=== PATIENT | female | born 1955 | race Caucasian/White ===

== ENCOUNTER 2017-09-06 23:53 | Inpatient (IN) | payer OTHER ==
[~2017-09-06] VITALS: Ht 175.3 cm; Wt 88.0 kg
[2017-09-07] VITALS (7 sets, daily range): BP systolic 118–141; BP diastolic 63–88; PULSE 89–112; RESP 15–22; TEMP 97.7–97.9; O2SAT 93–100
[2017-09-07] MEDS ORDERED: METF1000 PO (00:20)
[2017-09-07] MEDS ORDERED: LISI-515 PO (00:20)
[2017-09-07] MEDS ORDERED: ROSU40 PO (00:20)
[2017-09-07] MEDS ORDERED: CHOL1CAP PO (00:20)
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
[2017-09-07] MEDS ORDERED: MORPHINE SULFATE 4 MG/ML INJ IV PUSH ONE (00:30)
[2017-09-07] MEDS ORDERED: ONDANSETRON HCL 4 MG/2 ML VIAL IV PUSH ONE (00:30)
[2017-09-07 00:31] LABS: AUTOMATED NEUTROPHIL # 3.6 TH/MM3 (1.8-7.7); BASOPHIL # 0.1 TH/MM3 (0-0.2); BASOPHIL % 1.5 % (0.0-2.0); EOSINOPHIL # 0.3 TH/MM3 (0-0.4); EOSINOPHIL % 4.8 % (0.0-4.0); HEMATOCRIT 37.3 % (35.0-46.0); HEMOGLOBIN 13.1 GM/DL (11.6-15.3); LYMPH % 35.7 % (9.0-44.0); LYMPHOCYTE # 2.5 TH/MM3 (1.0-4.8); MEAN CELL VOLUME 91.2 FL (80.0-100.0); MEAN CORPUSCULAR HEMOGLOBIN 32.2 PG (27.0-34.0); MEAN CORPUSCULAR HGB CONC 35.3 % (32.0-36.0); MEAN PLATELET VOLUME 7.5 FL (7.0-11.0); MONO % 7.1 % (0.0-8.0); MONOCYTE # 0.5 TH/MM3 (0-0.9); NEUT % 50.9 % (16.0-70.0); PLATELET COUNT 201 TH/MM3 (150-450); RED BLOOD COUNT 4.09 MIL/MM3 (4.00-5.30); WHITE BLOOD COUNT 7.1 TH/MM3 (4.0-11.0)
[2017-09-07 00:50] LABS: BICARBONATE 22.1 MEQ/L (21.0-32.0); CREATININE 1.07 MG/DL (0.50-1.00); INTERNATIONAL NORMALIZED RATIO 1.1 RATIO; PROTHROMBIN TIME - PATIENT 10.9 SEC (9.8-11.6)
[2017-09-07] MEDS ORDERED: HYDROmorphone HCL PF 1 MG/ML VIAL IV PUSH ONE (01:00)
[2017-09-07] MEDS ORDERED: PROPOFOL 200 MG/20 ML AMP IV ONE ×3 (01:00→12:00)
[2017-09-07] MEDS ORDERED: HYDROmorphone HCL PF 2 MG/ML VIAL IV PUSH ONE (01:15)
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
--- NOTE | 2017-09-07 03:29 | RADRPT ---
EXAM DATE/TIME: 09/07/2017 02:14 [facility] COMPARISON: ANKLE RIGHT COMPLETE ([id number]), September 07, 2017, 0:28. INDICATIONS : Status post reduction. MEDICAL HISTORY : None. SURGICAL HISTORY : None. ENCOUNTER: Subsequent ACUITY: 1 day PAIN SCORE: 6/10 LOCATION: Right Ankle FINDINGS: Two view examination was performed of the right ankle. Image is labeled post reduction but there is n o real change in the bimalleolar fracture. Again, there is some disruption of the ankle mortise. Over lying splint material is now identified. CONCLUSION: 1. Stable appearance of the bimalleolar fracture with disruption of the ankle mortise. 2. Overlying splint material. Isidro De Guzman MD on September 07, 2017 at 3:26 Board Certified Radiologist. This report was verified electronically.
[2017-09-07] MEDS ORDERED: SODIUM CHLOR 0.9% 1000 ML INJ 1,000 ML IV SCH (04:54)
[2017-09-07] MEDS ORDERED: NALOXONE HCL 0.4 MG/ML AMP IV PUSH PRN ×2 (05:00→20:15)
[2017-09-07] MEDS ORDERED: GLUCAGON 1 MG/ML VIAL OTHER PRN (05:00)
[2017-09-07] MEDS ORDERED: DEXTROSE 50% IN WATER 50 ML VIAL(D50) IV PUSH PRN (05:00)
[2017-09-07] MEDS ORDERED: HYDROmorphone HCL PF 2 MG/ML VIAL IV PUSH PRN (05:00)
[2017-09-07] MEDS ORDERED: ONDANSETRON HCL 4 MG/2 ML VIAL IVP PRN ×2 (05:00→20:15)
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
[2017-09-07] MEDS: INSULIN ASPART SUPPLEMENTAL SCALE SQ SCH ×4 (08:00→21:00)
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
[2017-09-07] MEDS ORDERED: cloNIDine HCL 0.1 MG TAB PO PRN (08:30)
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
[2017-09-07] MEDS: ATORVASTATIN 40 MG TAB PO SCH (08:55)
[2017-09-07] MEDS ORDERED: STERILE WATER FOR INJECTION 20 ML VIAL IV ONE (12:00)
[2017-09-07] MEDS ORDERED: LIDOCAINE HCL 1% PF 5 ML SYRINGE OTHER ONE (12:00)
[2017-09-07] MEDS ORDERED: PHENYLEPH/NS 1000 MCG/10 ML SYR IV ONE (12:00)
[2017-09-07] MEDS ORDERED: DEXAMETHASONE SOD PHOS 4 MG/ML VIAL IV ONE (12:00)
[2017-09-07] MEDS ORDERED: ONDANSETRON HCL 4 MG/2 ML VIAL IV ONE (12:00)
[2017-09-07] MEDS ORDERED: ceFAZolin INJ 1,000 MG VIAL IV ONE (12:00)
[2017-09-07] MEDS ORDERED: CHLORHEXIDINE GLUCONATE 2 % 1 PACK (2 CLOTHS) TOPICAL PRN (15:30)
[2017-09-07] MEDS ORDERED: METOPROLOL TARTRATE 25 MG TAB PO PRN (15:30)
[2017-09-07] MEDS ORDERED: SODIUM CHLORID 0.9% 500 ML IV PRN (15:30)
[2017-09-07] MEDS ORDERED: INSULIN HUMAN REGULAR 1,000 UNITS/10 ML VIAL SQ PRN (15:30)
[2017-09-07] MEDS ORDERED: LACTATED RINGER'S 1000 ML IV PRN (15:30)
[2017-09-07] MEDS ORDERED: POVIDONE IODINE 5% (ANTISEPSIS KIT) 4 APPLICATIONS EACH NARE PRN (15:30)
[2017-09-07] MEDS ORDERED: MORPHINE SULFATE 4 MG/ML INJ ONE (16:55)
[2017-09-07] MEDS ORDERED: MORPHINE SULFATE 4 MG/ML INJ IV ONE (17:00)
[2017-09-07] MEDS ORDERED: HYDROmorphone HCL PF 2 MG/ML VIAL ONE (18:11)
[2017-09-07] MEDS ORDERED: ACETAMINOPHEN 1000 MG/100 ML 100 ML IV ONE (18:11)
[2017-09-07] MEDS ORDERED: GENTAMICIN SULFATE 80 MG/2 ML VIAL ONE (18:14)
[2017-09-07] MEDS ORDERED: MIDAZOLAM HCL 2 MG/2 ML VIAL ONE (18:36)
[2017-09-07] MEDS ORDERED: diphenhydrAMINE HCL 25 MG CAP PO PRN (20:15)
[2017-09-07] MEDS ORDERED: Post-op Orders (for Pharmacy) XX ONE (20:15)
[2017-09-07] MEDS ORDERED: MORPHINE SULFATE 8 MG/ML INJ IV PUSH PRN (20:15)
[2017-09-07] MEDS ORDERED: ASPIRIN EC 81 MG TABEC PO ONE (20:15)
[2017-09-07] MEDS ORDERED: MAGNESIUM HYDROXIDE SUSP 30 ML CUP PO PRN (20:15)
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
[2017-09-07] MEDS ORDERED: HYDR-3580 PO (20:24)
[2017-09-07] MEDS ORDERED: ECASA81 PO (20:24)
--- NOTE | 2017-09-07 20:52 | RADRPT ---
EXAM DATE/TIME: 09/07/2017 19:58 [facility] COMPARISON: CT ANKLE RIGHT W/O CONTRAST, September 07, 2017, 7:12. ANKLE RIGHT LIMITED (AP&LAT), September 07, 2017, 2:1 4. INDICATIONS : ORIF right ankle. MEDICAL HISTORY : Hypertension. SURGICAL HISTORY : None. ENCOUNTER: Subsequent ACUITY: 1 day PAIN SCORE: Non-responsive. LOCATION: Right ankle. FINDINGS: Interim upper reduction internal fixation of bimalleolar fractures. Fibular fixation consists of a la teral plate and multiple screws as well as an interfragmentary screw. Tibial fixation consists of 3 s crews and 2 pins. Alignment is near-anatomic. No evidence of an acute complication. CONCLUSION: Interim internal fixation of distal tibia and fibula fractures as above. Normal alignment. No evidenc e of an acute complication. Chapo Crum MD on September 07, 2017 at 20:49 Board Certified Radiologist. This report was verified electronically.
[2017-09-07] MEDS ORDERED: DO NOT ADM ANY ANTICOAGULANT DRUGS PRN (21:15)
[2017-09-07] MEDS ORDERED: *morphine SULFATE 4 MG/ML PERIprocedure ONLY ONE (22:02)
[2017-09-07] MEDS: LACTATED RINGER'S 1000 ML INJ 1,000 ML IV SCH (23:05)
[2017-09-07] MEDS: DOCUSATE SODIUM 50 MG/SENNA 8.6 MG TAB PO SCH (23:07)
[2017-09-07] MEDS: ASPIRIN EC 81 MG TABEC PO SCH (23:08)
[2017-09-08 03:45] VITALS: BP 117/60; PULSE 90; RESP 16; TEMP 98; O2SAT 96
[2017-09-08] MEDS: ACETAMINOPHEN/HYDROcodone 325 MG/7.5 MG TAB PO PRN ×5 (03:52→20:39)
[2017-09-08] MEDS: LACTATED RINGER'S 1000 ML INJ 1,000 ML IV SCH ×2 (05:41→16:14)
[2017-09-08 08:00] VITALS: BP 105/68; PULSE 82; RESP 17; TEMP 98.6; O2SAT 93
[2017-09-08] MEDS: INSULIN ASPART SUPPLEMENTAL SCALE SQ SCH ×4 (08:00→20:38)
[2017-09-08] MEDS: CALCIUM/VITAMIN D 250 MG/125 U TAB PO SCH ×3 (08:01→17:52)
[2017-09-08] MEDS: ASPIRIN EC 81 MG TABEC PO SCH ×2 (08:01→20:38)
[2017-09-08] MEDS: ATORVASTATIN 40 MG TAB PO SCH (08:02)
[2017-09-08] MEDS: MULTIVITAMINS/MINERALS THERAPEUTIC TAB PO SCH (08:02)
[2017-09-08] MEDS: DOCUSATE SODIUM 50 MG/SENNA 8.6 MG TAB PO SCH ×2 (08:02→20:39)
--- NOTE | 2017-09-08 09:10 | PD.ORT.PN ---
Subjective Subjective Remarks pt complains of post op right ankle pain plan is to be discharged home tomorrow Objective Vitals Vital Signs Date Time Temp Pulse Resp B/P (MAP) Pulse Ox O2 Delivery O2 Flow Rate FiO2 09/08/17 03:45 98.0 90 16 117/60 (79) 96 09/07/17 22:50 97.7 112 17 131/69 (89) 93 09/07/17 22:00 86 12 136/72 (93) 96 Nasal Cannula 4 09/07/17 21:45 95 15 140/76 (97) 96 Nasal Cannula 4 09/07/17 21:30 96 10 146/74 (98) 90 Nasal Cannula 4 09/07/17 21:15 97 10 151/76 (101) 87 Nasal Cannula 4 09/07/17 21:10 98.7 96 10 150/77 (101) 93 Nasal Cannula 4 09/07/17 12:44 92 22 139/71 (93) 97 Room Air I/O 09/07/17 09/07/17 09/07/17 09/08/17 09/08/17 09/08/17 07:00 15:00 23:00 07:00 15:00 23:00 Intake Total 1300 ml 740 ml Output Total 30 ml Balance 1270 ml 740 ml Intake Oral 640 ml IV Total 100 ml Other 1300 ml Output Estimated Blood Loss 30 ml # Voids 1 1 # Bowel Movements 0 Result Diagram: 09/07/17 0018 09/07/17 0018 Objective Remarks also seen and examined by Dr. Goldy Lira right ankle splint in place sensation intact +NVI Assessment & Plan Assessment and Plan POD # 1 s/p ORIF R ankle Aspirin 81 mg bid x 4 weeks dvt prop anticipate discharge home Sunday orthopedically stable Brittney Ochoa Sep 08, 2017 09:10
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
[2017-09-08] MEDS ORDERED: WHEEMIS3 (09:38)
[2017-09-08] MEDS ORDERED: WALKER WHEELS/F1 MIS (09:38)
[2017-09-08 10:00] LABS: ALBUMIN 3.5 GM/DL (3.4-5.0); ALT (GPT) 28 U/L (10-53); AST (GOT) 24 U/L (15-37); BICARBONATE 25.5 MEQ/L (21.0-32.0); BLOOD UREA NITROGEN 9 MG/DL (7-18); CALCIUM 8.5 MG/DL (8.5-10.1); CHLORIDE 105 MEQ/L (98-107); CREATININE 0.93 MG/DL (0.50-1.00); GLOMERULAR FILTRATION RATE 61 ML/MIN (>89); GLUCOSE,RANDOM 115 MG/DL (74-106); SODIUM (NA) 142 MEQ/L (136-145)
[2017-09-08 10:03] LABS: ALKALINE PHOSPHATASE 39 U/L (45-117); TOTAL BILIRUBIN ADULT 0.4 MG/DL (0.2-1.0); TOTAL PROTEIN 7.1 GM/DL (6.4-8.2)
[2017-09-08 12:00] VITALS: BP 118/67; PULSE 100; RESP 17; TEMP 97.2; O2SAT 96
[2017-09-08 16:00] VITALS: BP 132/62; PULSE 107; RESP 17; TEMP 98.7; O2SAT 95
--- NOTE | 2017-09-08 17:42 | EKG ---
Date Performed: 09/07/2017 Time Performed: 15:22:09 PTAGE: 62 years EKG: Sinus rhythm NORMAL ECG NO PREVIOUS TRACING DOCTOR: Cong Pyle Interpretating Date/Time 09/08/2017 17:40:42
[2017-09-08 20:10] VITALS: BP 134/67; PULSE 91; RESP 17; TEMP 99.4; O2SAT 93
[2017-09-09] VITALS: BP 116/62; PULSE 95; RESP 18; TEMP 99.6; O2SAT 92
[2017-09-09] MEDS: LACTATED RINGER'S 1000 ML INJ 1,000 ML IV SCH (02:01)
[2017-09-09] MEDS: ACETAMINOPHEN/HYDROcodone 325 MG/7.5 MG TAB PO PRN ×2 (06:41→12:34)
[2017-09-09 07:30] LABS: ALBUMIN 3.7 GM/DL (3.4-5.0); ALT (GPT) 25 U/L (10-53); AST (GOT) 31 U/L (15-37); BICARBONATE 26.5 MEQ/L (21.0-32.0); BLOOD UREA NITROGEN 10 MG/DL (7-18); CALCIUM 8.7 MG/DL (8.5-10.1); CHLORIDE 104 MEQ/L (98-107); CREATININE 0.89 MG/DL (0.50-1.00); GLOMERULAR FILTRATION RATE 64 ML/MIN (>89); GLUCOSE,RANDOM 107 MG/DL (74-106); PHOSPHORUS 2.4 MG/DL (2.5-4.9); SODIUM (NA) 139 MEQ/L (136-145)
[2017-09-09 07:33] LABS: BASOPHIL % 0.6 % (0.0-2.0); EOSINOPHIL # 0.2 TH/MM3 (0-0.4); EOSINOPHIL % 3.3 % (0.0-4.0); HEMATOCRIT 33.9 % (35.0-46.0); HEMOGLOBIN 11.4 GM/DL (11.6-15.3); LYMPH % 26.7 % (9.0-44.0); LYMPHOCYTE # 1.8 TH/MM3 (1.0-4.8); MEAN CELL VOLUME 93.4 FL (80.0-100.0); MEAN CORPUSCULAR HEMOGLOBIN 31.4 PG (27.0-34.0); MEAN CORPUSCULAR HGB CONC 33.6 % (32.0-36.0); MONO % 8.3 % (0.0-8.0); MONOCYTE # 0.6 TH/MM3 (0-0.9); NEUT % 61.1 % (16.0-70.0); PLATELET COUNT 162 TH/MM3 (150-450); RED BLOOD COUNT 3.63 MIL/MM3 (4.00-5.30); RED CELL DISTRIBUTION WIDTH 14.3 % (11.6-17.2); WHITE BLOOD COUNT 6.6 TH/MM3 (4.0-11.0)
[2017-09-09 07:39] LABS: ALKALINE PHOSPHATASE 41 U/L (45-117); FREE T4 1.25 NG/DL (0.76-1.46); TOTAL BILIRUBIN ADULT 0.5 MG/DL (0.2-1.0); TOTAL PROTEIN 7.1 GM/DL (6.4-8.2)
[2017-09-09 08:00] VITALS: BP 134/66; PULSE 89; RESP 18; TEMP 97.5; O2SAT 94
[2017-09-09] MEDS: INSULIN ASPART SUPPLEMENTAL SCALE SQ SCH ×2 (08:00→12:00)
--- NOTE | 2017-09-09 08:25 | PD.ORT.PN ---
Subjective Subjective Remarks pt doing better today, no complaints ready to be discharged, will be traveling back to [place] Objective Vitals Vital Signs Date Time Temp Pulse Resp B/P (MAP) Pulse Ox O2 Delivery O2 Flow Rate FiO2 09/09/17 00:00 99.6 95 18 116/62 (80) 92 09/08/17 22:29 Room Air 09/08/17 21:30 18 09/08/17 20:10 99.4 91 17 134/67 (89) 93 09/08/17 16:00 98.7 107 17 132/62 (85) 95 09/08/17 12:00 97.2 100 17 118/67 (84) 96 I/O 09/08/17 09/08/17 09/08/17 09/09/17 09/09/17 09/09/17 07:00 15:00 23:00 07:00 15:00 23:00 Intake Total 740 ml 480 ml 360 ml Balance 740 ml 480 ml 360 ml Intake Oral 640 ml 480 ml 360 ml IV Total 100 ml # Voids 1 3 3 # Bowel Movements 0 0 0 Result Diagram: 09/09/17 0515 09/09/17 0515 Objective Remarks right ankle splint in place sensation intact no pain with passive range of motion of toes +NVI Assessment & Plan Assessment and Plan POD # 2 s/p ORIF R ankle Aspirin 81 mg bid x 4 weeks dvt prop pain rx in chart, walker /wheelchair rx in chart discharge today orthopedically stable Brittney Ochoa Sep 09, 2017 08:25
[2017-09-09] MEDS: ASPIRIN EC 81 MG TABEC PO SCH (08:50)
[2017-09-09] MEDS: CALCIUM/VITAMIN D 250 MG/125 U TAB PO SCH (08:50)
[2017-09-09] MEDS: MULTIVITAMINS/MINERALS THERAPEUTIC TAB PO SCH (08:50)
[2017-09-09] MEDS: DOCUSATE SODIUM 50 MG/SENNA 8.6 MG TAB PO SCH (08:50)
[2017-09-09] MEDS: ATORVASTATIN 40 MG TAB PO SCH (08:51)
[2017-09-09 09:49] LABS: HEMOGLOBIN A1C 6.8 % (4.3-6.0)
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
[2017-09-09] MEDS ORDERED: PERI PO (11:06)
[2017-09-09] MEDS ORDERED: THERM PO (11:06)
[2017-09-09] MEDS ORDERED: CALC250 PO (11:06)
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
[2017-09-09 12:00] VITALS: BP 131/77; PULSE 88; RESP 17; TEMP 98.4; O2SAT 96
== END 2017-09-09 13:21 | disposition home or self-care (01) | DRG 494 ==
LOC: NEPD 23:53 → NEDA 09-07 02:28 → NEDH 09-07 11:11 → NEDA 09-07 17:15 → N06A 09-07 22:19
PROVIDERS: ADMIT Hospitalist; ATTEND Hospitalist
PROC: 0QSJ04Z Reposition Right Fibula with Internal Fixation Device, Open Approach (ICD-10-PCS; 2017-09-07)
PROC: 0QSG04Z Reposition Right Tibia with Internal Fixation Device, Open Approach (ICD-10-PCS; 2017-09-07)
PROC: 0QHG04Z Insertion of Internal Fixation Device into Right Tibia, Open Approach (ICD-10-PCS; principal; 2017-09-07 18:25)
DX: S82.851A Displaced trimalleolar fracture of right lower leg, initial encounter for closed fracture (principal); I10 Essential (primary) hypertension; R00.0 Tachycardia, unspecified; E78.5 Hyperlipidemia, unspecified; E11.9 Type 2 diabetes mellitus without complications; Z96.611 Presence of right artificial shoulder joint; Z79.84 Long term (current) use of oral hypoglycemic drugs; V28.5XXA Motorcycle passenger injured in noncollision transport accident in traffic accident, initial encounter; Z87.891 Personal history of nicotine dependence
CPT/HCPCS: 27840; 73590; 73600; 73610; 73700; 76000; 80048; 80053; 82948; 83036; 83735; 84100; 84439; 84443; 85025; 85610; 85730; 93005; 94150; 96374; 96375; C1713; J0131; J0690; J1100; J1170; J1580; J2250; J2270; J2370; J2405; J7030; J7120